=== PATIENT | female | born 1945 | race Two or more races ===

== ENCOUNTER 2019-04-30 21:38 | Emergency (ER) | payer MEDICARE ==
[~2019-04-30] VITALS: Ht 162.6 cm; Wt 46.0 kg
[2019-05-01 02:05] VITALS: BP 142/59
== END 2019-05-01 02:12 | disposition home or self-care (01) ==
LOC: ER 21:38
DX: E11.9 Type 2 diabetes mellitus without complications (principal); I10 Essential (primary) hypertension; G20 Parkinson's disease; Z98.890 Other specified postprocedural states
CPT/HCPCS: 71045; 99283